=== PATIENT | male | born 1950 | race Caucasian/White ===

== ENCOUNTER 2018-09-13 07:39 | Inpatient (IN) | payer MEDICARE, OTHER ==
[2018-09-02 09:14] LABS: ABSOLUTE BASOPHILS 0.1 thou/uL (0.0-0.2); ABSOLUTE EOSINOPHILS 0.4 thou/uL (0.0-0.7); ABSOLUTE LYMPHOCYTES 1.2 thou/uL (0.8-5.3); ABSOLUTE MONOCYTES 0.3 thou/uL (0.0-1.2); ABSOLUTE NEUTROPHILS 2.3 thou/uL (1.6-8.1); BASOPHILS 1.7 %; EOSINOPHILS 8.6 %; HEMATOCRIT 44.4 % (42.0-52.0); HEMOGLOBIN 15.2 gm/dL (14.0-18.0); LYMPHOCYTES 28.8 %; MCH 31.6 pg (26.0-34.0); MCHC 34.3 g/dL (28.0-37.0); MCV 92.1 fL (80.0-100.0); MONOCYTES 7.5 %; NUCLEATED RBCS 0 /100WBC; PLATELET COUNT* 206 thou/uL (150-400); POLYS 53.4 %; RBC 4.82 mil/uL (4.50-6.00); RDW-CV 12.7 % (10.5-14.5); WBC 4.2 thou/uL (4.0-11.0)
[2018-09-02 09:19] LABS: APTT 30.8 Seconds (25.0-31.3); PROTIME 10.4 Seconds (9.20-11.50)
[2018-09-02 09:28] LABS: ALBUMIN 3.5 g/dL (3.4-5.0); POTASSIUM 3.5 mmol/L (3.5-5.1); TOTAL BILIRUBIN 0.7 mg/dL (<0.1-1.0); TOTAL PROTEIN 6.8 g/dL (6.4-8.2)
[2018-09-02 10:20] LABS: ESR (SEDRATE) 11 mm/hr (0-20)
--- NOTE | 2018-09-02 17:32 | EKG ---
[place] [address] ELECTROCARDIOGRAM REPORT Name: ALE GEORGE Room: [facility].#: [id number] Admission: Attend Phys: Virgil Dowling DO Discharge: Date of : 52 Report #: [id number] THIS REPORT FOR: //name// [facility] Test Date: 2018-09-02 Test Time: 09:35:53 Pat Name: ALE GEORGE Department: Room: Gender: M Workers Compensation Consultant: : 1950 Requested By: Virgil Dowling Order Number: [id number] Reading MD: Wilner Mahmood Measurements Intervals [place] Rate: 72 P: 57 NM: 158 QRS: 11 QRSD: 103 T: 37 QT: 383 QTc: 420 Interpretive Statements Sinus rhythm Inferior infarct, old No previous ECG available for comparison Electronically Signed On 09-02-2018 17:32:10 [employer] by Wilner Mahmood [email or web address] <ELECTRONICALLY SIGNED> By: Wilner Mahmood MD, [facility] 09/02/18 1732 0935 [id number] Wilner Mahmood MD, FACC /EPI
[2018-09-02 21:10] LABS: GLYCOHEMOGLOBIN (HGB A1C) 5.3 % (4.8-5.6)
[~2018-09-13] VITALS: Ht 177.8 cm; Wt 104.3 kg
[~2018-09-13 07:39] MED LIST: BENAZEPRIL-HCT1 EA11 PO; CENTRUM SILVER1 EAC2 PO; ETODOLAC500 MG PO; MAGNESIUM250 M1 PO; OMEPRAZOLE 20 M20 M1 PO; PYRIDOXINE HCL50 MG PO; ZOCOR20 MG PO
[2018-09-13 08:40] VITALS: BP 129/87
[2018-09-13 15:00] VITALS: BP 138/83
[2018-09-13 20:10] VITALS: BP 133/77
[2018-09-13 20:30] VITALS: BP 133/77
[2018-09-14 01:00] VITALS: BP 124/79
[2018-09-14 04:15] LABS: HEMATOCRIT 38.9 % (42.0-52.0); HEMOGLOBIN 13.2 gm/dL (14.0-18.0)
[2018-09-14 04:30] VITALS: BP 126/82
[2018-09-14 07:45] VITALS: BP 143/83
[2018-09-14 16:00] VITALS: BP 132/66
[2018-09-14 20:00] VITALS: BP 133/80
[2018-09-14 23:50] VITALS: BP 138/80
[2018-09-15] VITALS (7 sets, daily range): BP systolic 126–147; BP diastolic 75–94
[2018-09-15 04:00] LABS: HEMOGLOBIN 12.3 gm/dL (14.0-18.0)
[2018-09-15] MEDS ORDERED: OXYCODONE HCL 55 MG PO (19:02)
[2018-09-15] MEDS ORDERED: ELIQUIS2.5 MG PO (19:07)
[2018-09-15] MEDS ORDERED: BENAZEPRIL-HCT1 EA11 PO (19:09)
[2018-09-15] MEDS ORDERED: FLOMAX0.4 MG PO (19:14)
== END 2018-09-15 20:02 | disposition home or self-care (01) | DRG 470 ==
LOC: M.SUR 07:39 → M.ORTHSURG 13:06 → M.SUR 13:14 → M.ORTHSURG 15:04
PROVIDERS: Orthopaedic Surgery; ADMIT Internal Medicine
PROC: 0SRD0J9 Replacement of Left Knee Joint with Synthetic Substitute, Cemented, Open Approach (ICD-10-PCS; principal; 2018-09-13)
DX: M17.12 Unilateral primary osteoarthritis, left knee (principal); D62 Acute posthemorrhagic anemia; I10 Essential (primary) hypertension; K21.9 Gastro-esophageal reflux disease without esophagitis; E66.9 Obesity, unspecified; Z79.899 Other long term (current) drug therapy; Z87.891 Personal history of nicotine dependence; Z88.2 Allergy status to sulfonamides; Z68.33 Body mass index [BMI] 33.0-33.9, adult